=== PATIENT | male | born 1945 | race African-American/Black ===

== ENCOUNTER 2018-08-05 13:57 | Inpatient (IN) | payer MEDICARE, MEDICAID ==
[~2018-08-05] VITALS: Ht 175.3 cm; Wt 74.8 kg
[2018-08-05 14:34] LABS: BASOPHILS % 0.7 % (0.0-2.0); EOSINOPHILS % 4.9 % (0.0-5.0); HEMOGLOBIN. 10.1 g/dL (14.0-18.0); LYMPHOCYTES % 37.4 % (20.0-50.0); MEAN CORPUSCULAR HEMOGLOBIN 31.1 pg (28.0-32.0); MEAN CORPUSCULAR VOLUME 89.4 fL (80.0-94.0); MEAN PLATELET VOLUME 7.2 fl (7.4-10.4); MONOCYTES % 9.9 % (2.0-8.0); NEUTROPHILS % 47.1 % (40.0-76.0); PLATELET 228 x1000/uL (130-400); RED BLOOD CELL COUNT 3.24 mill/uL (4.7-6.1); RED CELL DISTRIBUTION WIDTH 15.7 % (11.6-14.6)
[2018-08-05 14:40] LABS: CHLORIDE 99 mEq/L (98-107)
[2018-08-06] MEDS ORDERED: LORAZEPAM 2MG/ML CPJ IV PRN (11:45)
[2018-08-06] MEDS ORDERED: CLONIDINE 0.1MG TABLET PO PRN (11:45)
[2018-08-06] MEDS ORDERED: DOCUSATE SODIUM 100MG CAPSULE PO PRN (11:45)
[2018-08-06] MEDS ORDERED: ENOXAPARIN 40MG/0.4ML SYR SUBCUT SCH (11:45)
[2018-08-06] MEDS ORDERED: ACETAMINOPHEN 325MG TABLET PO PRN (11:45)
[2018-08-06] MEDS ORDERED: HYDROCODONE/ACETAMINOPHEN 5/325MG TABLET PO PRN (11:45)
[2018-08-06] MEDS ORDERED: ONDANSETRON HCL 4MG/2ML INJ IV PRN (11:45)
[2018-08-06 16:00] VITALS: BP 129/74
[2018-08-06 16:11] VITALS: BP 129/74
[2018-08-06 20:00] VITALS: BP 146/78
[2018-08-07] VITALS: BP 129/69
[2018-08-07 04:00] VITALS: BP 121/65
[2018-08-07 08:00] VITALS: BP 163/78
[2018-08-07] MEDS: ENOXAPARIN 30MG/0.3ML SYR SUBCUT SCH (09:07)
[2018-08-07 12:00] VITALS: BP 115/69
[2018-08-07 16:00] VITALS: BP 102/56
[2018-08-07 20:00] VITALS: BP 119/53
[2018-08-08] VITALS: BP 122/72
[2018-08-08 04:00] VITALS: BP 130/76
[2018-08-08 06:14] LABS: EOSINOPHILS % 5.3 % (0.0-5.0); HEMATOCRIT. 28.6 % (42.0-52.0); HEMOGLOBIN. 9.6 g/dL (14.0-18.0); LYMPHOCYTES % 31.1 % (20.0-50.0); MEAN CORPUSCULAR HEMOGLOBIN 30.1 pg (28.0-32.0); MEAN CORPUSCULAR VOLUME 89.4 fL (80.0-94.0); MONOCYTES % 10.4 % (2.0-8.0); NEUTROPHILS % 52.2 % (40.0-76.0); PLATELET 214 x1000/uL (130-400); RED CELL DISTRIBUTION WIDTH 15.4 % (11.6-14.6)
[2018-08-08 08:00] VITALS: BP 124/67
[2018-08-08] MEDS: ENOXAPARIN 30MG/0.3ML SYR SUBCUT SCH (09:36)
[2018-08-08 12:00] VITALS: BP 128/73
[2018-08-08 16:00] VITALS: BP 149/79
[2018-08-08 20:00] VITALS: BP 151/64
[2018-08-09] VITALS: BP 150/87
[2018-08-09 04:00] VITALS: BP 154/82
[2018-08-09 08:00] VITALS: BP 151/83
[2018-08-09] MEDS: ENOXAPARIN 30MG/0.3ML SYR SUBCUT SCH (08:55)
[2018-08-09 10:21] LABS: BASOPHILS % 0.8 % (0.0-2.0); EOSINOPHILS % 6.5 % (0.0-5.0); HEMATOCRIT. 30.3 % (42.0-52.0); HEMOGLOBIN. 10.2 g/dL (14.0-18.0); LYMPHOCYTES % 27.5 % (20.0-50.0); MEAN CORPUSCULAR VOLUME 89.2 fL (80.0-94.0); MEAN PLATELET VOLUME 7.5 fl (7.4-10.4); MONOCYTES % 10.7 % (2.0-8.0); NEUTROPHILS % 54.5 % (40.0-76.0); PLATELET 205 x1000/uL (130-400); RED CELL DISTRIBUTION WIDTH 16.4 % (11.6-14.6)
[2018-08-09 11:28] VITALS: BP 152/71
[2018-08-09 15:26] VITALS: BP 143/78
[2018-08-09 16:23] VITALS: BP 152/71
== END 2018-08-09 16:38 | DRG 291 ==
LOC: ER 13:57 → ENRESERV 08-06 10:13 → 6EST 08-06 11:29 → EDBEDREQSVC 08-06 11:31 → EDBEDREQDT 08-06 11:31 → EDBEDREQ 08-06 11:31 → EDBEDREQTM 08-06 11:31 → SUPCPDRO 08-06 11:39 → EDBEDREQTM 08-06 12:19 → EDBEDREQ 08-06 12:19 → EDBEDREQSVC 08-06 12:19 → ER 08-06 15:03 → 6EST 08-06 16:57
PROVIDERS: ADMIT Hospitalist; ATTEND Hospitalist
PROC: 5A1D70Z Performance of Urinary Filtration, Intermittent, Less than 6 Hours Per Day (ICD-10-PCS; principal; 2018-08-07)
PROC: 5A1D70Z Performance of Urinary Filtration, Intermittent, Less than 6 Hours Per Day (ICD-10-PCS; 2018-08-09)
DX: I13.2 Hypertensive heart and chronic kidney disease with heart failure and with stage 5 chronic kidney disease, or end stage renal disease (principal); I50.33 Acute on chronic diastolic (congestive) heart failure; N18.6 End stage renal disease; D63.1 Anemia in chronic kidney disease; F03.90 Unspecified dementia, unspecified severity, without behavioral disturbance, psychotic disturbance, mood disturbance, and anxiety; Z99.2 Dependence on renal dialysis
CPT/HCPCS: 36415; 71045; 80048; 84100; 93005; 93970; 99285; J1650

== ENCOUNTER → 2019-06-16 | Day surgery (SDC) | payer MEDICARE, MEDICAID ==
[2019-06-16] VITALS (12 sets, daily range): BP systolic 102–121; BP diastolic 56–76
[~2019-06-16] VITALS: Ht 175.3 cm; Wt 79.4 kg
[~2019-06-16] MED LIST: CEFAZOLIN 1000MG PREMIX 50 ML IV ONE; FENTANYL CITRATE/PF 50MCG/ML 2ML VIAL IV ONE; FENTANYL CITRATE/PF 50MCG/ML 2ML VIAL ONE; HEPARIN 1000 UNITS/ML 10ML ONE; LIDOCAINE HCL 1% 20ML VIAL (Pyxis) INJ ONE; SODIUM BICARBONATE 4% (2.4MEQ) 5ML VIAL IV ONE
== END | disposition home or self-care (01) ==
LOC: ANGIO 10:28
PROVIDERS: ATTEND Internal Medicine Nephrology
DX: N18.6 End stage renal disease (principal); F12.90 Cannabis use, unspecified, uncomplicated; Z82.49 Family history of ischemic heart disease and other diseases of the circulatory system
CPT/HCPCS: 36558; 76937; 77001; C1887; J0690; J1644; J3010; J3490; 99152; 99153; G0500